=== PATIENT | female | born 1995 | race Caucasian/White ===

== ENCOUNTER 2017-10-02 09:52 | Emergency (ER) | payer OTHER ==
[2017-10-02 10:14] VITALS: BP 127/75
--- NOTE | 2017-10-02 10:47 | UC ---
Throat Pain/Nasal [place] HPI - HPI Summary HPI Summary: HISTORY OF CHRONIC SINUS INFECTIONS. HAS HAD TWO DAYS OF WORSENING CONGESTION, SINUS PRESSURE AND PND. FEVER LAST NIGHT. GOING AWAY ON A TRIP TOMORROW UNTIL NEXT WEEK. AND CONCERNED THAT SHE MAY BE STUCK WITH SINUS INFECTION AND NO TREATMENT. - History of Current Complaint Chief Complaint: UCRespiratory Stated Complaint: SORE THROAT CONGESTION Time Seen by Provider: 10/02/17 10:19 Hx Obtained From: Patient Hx Last Menstrual Period: 09/11/17 Onset/Duration: Gradual Onset, Lasting Days Severity: Moderate Cough: None Associated Signs & Symptoms: Positive: Hoarseness, Sinus Discomfort, Nasal Discharge, Fever - Epiglottits Risk Factors Epiglottis Risk Factors: Negative - Allergies/Home Medications Allergies/Adverse Reactions: Allergies Allergy/AdvReac Type Severity Reaction Status Date / Time No Known Allergies Allergy Verified 10/02/17 10:14 Home Medications: Home Medications Apremilast (NF) [Otezla (NF)] 30 mg PO BID 10/02/17 [History Confirmed 10/02/17] PMH/Surg Hx/FS Hx/Imm Hx Previously Healthy: Yes - Surgical History Surgical History: Yes Surgery Procedure, Year, and Place: right ankle - Family History Known Family History: Negative: Respiratory Disease - Social History Occupation: Student Lives: With Family Alcohol Use: Weekly Substance Use Type: None Smoking Status (MU): Never Smoked Tobacco - Immunization History Most Recent Influenza Vaccination: no Review of Systems Constitutional: Fatigue Skin: Negative Eyes: Negative ENT: Sore Throat, Nasal Discharge, Sinus Congestion, Sinus Pain/Tenderness Respiratory: Negative Cardiovascular: Negative Gastrointestinal: Negative Genitourinary: Negative Motor: Negative Neurovascular: Negative Musculoskeletal: Negative Neurological: Negative Psychological: Negative Is Patient Immunocompromised?: No All Other Systems Reviewed And Are Negative: Yes Physical Exam Triage Information Reviewed: Yes Appearance: No Pain Distress, Well-Nourished, Ill-Appearing - MILDLY Vital Signs: Initial Vital Signs Temp 98.6 F 10/02/17 10:11 Pulse 104 10/02/17 10:11 Resp 18 10/02/17 10:11 BP 127/75 10/02/17 10:11 Pulse Ox 98 10/02/17 10:11 Eye Exam: Normal ENT Exam: Normal ENT: Positive: Pharynx normal, Nasal congestion, Nasal drainage, TMs normal Dental Exam: Normal Neck exam: Normal Neck: Positive: Supple, Nontender, No Lymphadenopathy Respiratory Exam: Normal Respiratory: Positive: Chest non-tender, Lungs clear, Normal breath sounds, No respiratory distress, No accessory muscle use Cardiovascular Exam: Normal Cardiovascular: Positive: RRR, No Murmur, Pulses Normal, Brisk Capillary Refill Abdominal Exam: Normal Abdomen Description: Positive: Nontender, No Organomegaly Musculoskeletal Exam: Normal Musculoskeletal: Positive: Strength Intact Neurological Exam: Normal Psychological Exam: Normal Skin Exam: Normal Throat Pain/Nasal Course/Dx - Course Assessment/Plan: PATIENT AGREED TO WAIT FOR MINIMUM OF FIVE DAYS AND TO TAKE ANTIBIOTICS THEN IF SYMPTOMS CONTINUED. - Differential Dx/Diagnosis Differential Diagnosis/HQI/PQRI: Pharyngitis, Sinusitis, Tonsillitis, URI Provider Diagnoses: SINUSITIS. Discharge - Discharge Plan Condition: Stable Disposition: HOME Prescriptions: Amoxicillin/Clavulanate TAB* [Augmentin TAB 875*] 875 mg PO BID #20 tab Patient Education Materials: Sinusitis (ED) Referrals: [facility] [place] [facility] [Outside]
== END 2017-10-02 10:45 | disposition home or self-care (01) ==
LOC: UCCORT 09:52
DX: J32.9 Chronic sinusitis, unspecified (principal)
CPT/HCPCS: 99202; G0463